=== PATIENT | male | born 1970 | race Hispanic/Latino ===

== ENCOUNTER 2018-12-30 07:08 | Day surgery (SDC) | payer BC ==
[2018-12-29 15:37] LABS: Absolute Lymphocytes (CBC) 1.8 K/uL (0.7-4.9); Absolute Monocytes 0.4 K/uL (0.1-1.3); Absolute Neutrophil 4.7 K/uL (1.8-8.0); Basophils % 0.7 % (0-1.3); Eosinophils % 1.8 % (0-4.4); Hematocrit 43.6 % (39.6-49.0); Lymphocytes % 25.1 % (15.3-44.8); MPV 9.1 fL (7.6-11.3); Monocytes % 5.7 % (3.3-12.3); RBC Red Blood Cell Count 4.69 M/uL (4.33-5.43)
[2018-12-29 15:56] LABS: BUN Blood Urea Nitrogen 17 mg/dL (7-18); Bicarbonate 28 mmol/L (21-32); Glucose Level 107 mg/dL (74-106); Potassium 3.9 mmol/L (3.5-5.1); Sodium Level 141 mmol/L (136-145)
--- NOTE | 2018-12-29 16:16 | RAD REPORT ---
EXAM DESCRIPTION: RAD - Chest Pa And Lat (2 Views) - 12/29/2018 3:31 pm CLINICAL HISTORY: Preop chest, pending abdominal hernia repair, asthma history COMPARISON: December 2017 TECHNIQUE: PA and lateral views of the chest were obtained. FINDINGS: The lungs are fibrotic with interstitial pattern similar to comparison. No acute failure, infiltrate or mass. No measurable progression of the COPD or fibrotic lung pattern. Heart size is normal and central vasculature is within normal limits. No pleural effusion or pneumot horax seen. No acute bony finding noted. No aortic abnormality. IMPRESSION: Fibrotic lung pattern similar to comparison. No acute finding.
--- NOTE | 2018-12-30 07:51 | EKG ---
Test Date: 2018-12-29 Test Time: 15:18:09 Case Assistant: KOFI MEASUREMENT RESULTS: Intervals: Rate: 50 HI: 206 QRSD: 98 QT: 450 QTc: 410 [place]: P: 63 HI: 206 QRS: 56 T: 57 INTERPRETIVE STATEMENTS: Sinus bradycardia Otherwise normal ECG Compared to ECG 11/18/2009 21:29:27 Sinus rhythm no longer present Electronically Signed On 12-30-18 07:50:17 CDT by Yamil Barnes
[2018-12-30] MEDS ORDERED: Ringers Lactate 1,000 ML IV ONE (07:53)
[2018-12-30] MEDS ORDERED: CEFAZOLIN/SWI 1gm 1 GM/10 ML SYR ONE (07:54)
[2018-12-30] MEDS ORDERED: PROPOFOL 200 MG/20 ML VIAL IV ONE (08:50)
[2018-12-30] MEDS ORDERED: ONDANSETRON 4 MG/2 ML VIAL ONE (08:50)
[2018-12-30] MEDS ORDERED: FENTANYL CITR 100 MCG/2 ML ONE (08:50)
[2018-12-30] MEDS ORDERED: MIDAZOLAM HCL 2 MG/2 ML INJ ONE (08:50)
[2018-12-30] MEDS ORDERED: LIDOCAINE 2% MPF 5 ML VIAL ONE (08:50)
[2018-12-30] MEDS ORDERED: ROCURONIUM 50 MG/5 ML VIAL IV ONE (08:53)
--- NOTE | 2018-12-30 09:38 | P.BOP ---
Preoperative diagnosis: incarcerated umbilical hernia Postoperative diagnosis: same Primary procedure: Open repair of incarcerated umbilical hernia Merchandise Displayer: SARINA RODRÍGUEZ (DESILVERIZER) Estimated blood loss: <10cc Specimen: hernia sac Findings: see dictation Anesthesia: General Complications: None Transferred to: Recovery Room
[2018-12-30] MEDS ORDERED: NEOSTIGMINE 1 MG/ML -10 ML VIAL ONE (09:47)
[2018-12-30] MEDS ORDERED: GLYCOPYRROLATE 0.2 MG/ML SYR ONE (09:47)
[2018-12-30] MEDS ORDERED: CODEINE 30MG/APAP 300MG TAB ONE (10:53)
--- NOTE | 2018-12-30 19:50 | DS ---
Date of Discharge: 12/30/2018 Diagnosis: Incarcerated umbilical hernia. Procedures: Open repair of incarcerated umbilical hernia. Disposition: Home. Activity: Activity as tolerated. No heavy lifting. Followup: Follow up in my office in 1 week. Call for appointment [phone]. Medications: Include Bactrim DS p.o. b.i.d., Vicodin q.4 hours p.r.n. pain. JOE/FLEX Voice ID: [id number] Report ID: [id number]
--- NOTE | 2018-12-30 19:50 | OP ---
Date of Procedure: 12/30/2018 Surgeon: Kenneth Wilson MD Tattoo Identifier: Natalie Christianson. Preoperative Diagnosis: Incarcerated umbilical hernia. Postoperative Diagnosis: Incarcerated umbilical hernia. Procedures: Open repair of incarcerated umbilical hernia. Estimated Blood Loss: Less than 10 cc. Findings: Incarcerated omentum. Anesthesia: General plus local. Indications: This is a case of a 48-year-old patient, who comes to us with a tender umbilical incarc erated hernia. Benefits, alternatives, and risks of repair were fully explained, which include but a re not limited to infection, bleeding, damage to adjacent structures, anesthesia complication, recurr ence, DC, and even . He also understands this may not relieve the symptoms. He might need more than one surgical intervention. He understood, signed a consent. Description Of Procedure: The patient was brought to the operating room, placed in supine position. Anesthesia was done without complication. Abdominal area was prepped and draped in a sterile fashio n. Local anesthetic was applied over the area, followed by a curvilinear incision. Incision was car ried down to the hernia sac area. Hernia sac was opened. We noticed incarcerated omentum still viab le, so we removed some adhesions from the hernia sac, reduced back into the abdominal cavity after fu lly inspected. Removed the hernia sac, cleaned the fascia edges, and closed the defects with Prolene #1 figure-eight fashion multiple times. Subcutaneous tissue closed with 3-0 chromic and skin in a subcuticular fashion with Steri-Strips on top. Sponge count and instrument counts were correct. JOE/FLEX Voice ID: [id number] Report ID: [id number]
== END 2018-12-30 11:30 | disposition home or self-care (01) ==
LOC: OR 07:08
PROVIDERS: ATTEND Surgery
PROC: 0WQF0ZZ Repair Abdominal Wall, Open Approach (ICD-10-PCS; principal; 2018-12-30 09:00)
DX: K42.0 Umbilical hernia with obstruction, without gangrene (principal); J45.909 Unspecified asthma, uncomplicated; Z79.899 Other long term (current) drug therapy; Z87.891 Personal history of nicotine dependence
CPT/HCPCS: 36415; 71046; 80048; 85025; 88302; 93005; J0690; J2250; J2405; J2704; J2710; J3010